=== PATIENT | male | born 1995 | race African-American/Black ===

== ENCOUNTER 2018-10-29 14:08 | Emergency (ER) | payer MEDICAID ==
[~2018-10-29] VITALS: Ht 170.2 cm; Wt 87.0 kg
[2018-10-29 19:46] VITALS: BP 139/67
== END 2018-10-29 19:47 | disposition home or self-care (01) ==
LOC: ER 14:47
DX: B35.6 Tinea cruris (principal); Z88.8 Allergy status to other drugs, medicaments and biological substances
CPT/HCPCS: 99282

== ENCOUNTER 2019-12-19 08:57 | Emergency (ER) | payer MEDICAID ==
[~2019-12-19] VITALS: Ht 172.7 cm; Wt 70.0 kg
[2019-12-19 10:50] VITALS: BP 123/78
== END 2019-12-19 10:52 | disposition home or self-care (01) ==
LOC: ER 08:57
DX: R07.89 Other chest pain (principal); Z20.828 Contact with and (suspected) exposure to other viral communicable diseases; Z88.8 Allergy status to other drugs, medicaments and biological substances
CPT/HCPCS: 71045; 87635; 99284

== ENCOUNTER 2019-12-27 16:42 | Emergency (ER) | payer MEDICAID ==
[~2019-12-27] VITALS: Ht 172.7 cm; Wt 84.0 kg
[2019-12-27 17:15] VITALS: BP 149/76
== END 2019-12-27 17:20 | disposition home or self-care (01) ==
LOC: ER 16:42
DX: Z20.828 Contact with and (suspected) exposure to other viral communicable diseases (principal); R03.0 Elevated blood-pressure reading, without diagnosis of hypertension
CPT/HCPCS: 99281